=== PATIENT | female | born 1955 | race Caucasian/White ===

== ENCOUNTER 2021-08-09 10:22 | Day surgery (SDC) | payer OTHER ==
[2021-08-09 10:43] VITALS: BMI 22.1
[2021-08-09] MEDS ORDERED: PROPOFOL 20 ML ONE ×4 (10:47→12:40)
[2021-08-09] MEDS ORDERED: MIDAZOLAM HCL 2 MG/2 ML SINGLE DOSE VIAL ONE (10:49)
[2021-08-09] MEDS ORDERED: ONDANSETRON 4 MG/2 ML VIAL ONE (10:51)
[2021-08-09] MEDS ORDERED: DEXAMETHASONE SOD PHOSPHATE 4 MG/1 ML VIAL ONE (10:51)
[2021-08-09] MEDS ORDERED: ceFAZolin SODIUM 1 GM VIAL ONE ×2 (10:51→12:45)
[2021-08-09] MEDS ORDERED: ERYTHROMYCIN 0.5% OPHTHALMIC OINTMENT 3.5 GM TUBE ONE (10:55)
[2021-08-09] MEDS ORDERED: TETRACAINE 0.5% OPHTH SOLN 2 ML BOTTLE ONE (10:56)
[2021-08-09] MEDS ORDERED: POVIDONE-IODINE 5% OPHTHALMIC PREP 30 ML SOLUTION ONE (10:56)
[2021-08-09] MEDS ORDERED: LIDOCAINE 1%/EPI 1:100000 (20 ML MULTI DOSE VIAL) ONE (10:56)
[2021-08-09] MEDS ORDERED: ONDANSETRON 4 MG/2 ML VIAL IVPUSH PRN (13:06)
[2021-08-09] MEDS ORDERED: oxyCODONE HCL 5 MG TABLET PO PRN (13:06)
[2021-08-09] MEDS ORDERED: LACTATED RINGERS SOLUTION 1,000 ML IV SCH (13:15)
[2021-08-09 14:06] VITALS: TEMP 97.8
[2021-08-09 14:24] VITALS: BP 142/67; PULSE 61
== END 2021-08-09 14:50 | disposition home or self-care (01) ==
LOC: FER 10:22 → FASUSAT 11:08
PROVIDERS: ATTEND Ophthalmology
PROC: 0JX10ZZ Transfer Face Subcutaneous Tissue and Fascia, Open Approach (ICD-10-PCS; 2021-08-09)
PROC: 08BP0ZX Excision of Left Upper Eyelid, Open Approach, Diagnostic (ICD-10-PCS; principal; 2021-08-09 11:55)
DX: C44.1091 Unspecified malignant neoplasm of skin of left upper eyelid, including canthus (principal)
CPT/HCPCS: 94760; 99285-25